=== PATIENT | male | born 1940 | race Caucasian/White ===

== ENCOUNTER 2016-10-28 11:48 | Outpatient (CLI) | payer MEDICARE, OTHER ==
[2015-05-15 09:18] VITALS: BP 117/71
--- NOTE | 2016-10-28 13:41 | Diagnostic Imaging Report ---
[facility] [address] [facility].[address] [address] Report Submission Date: Oct 28, 2016 1:12:26 PM FUELS SALES REPRESENTATIVE Patient Study Name: GALEN PALAFOX Date: Oct 28, 2016 11:57:24 AM FUELS SALES REPRESENTATIVE Modality Type: CR Gender: M Description: PELVIS : 42 Institution: [facility] Physician TYREE PARK - OP Right hip -two views CLINICAL HISTORY: Right hip pain. FINDINGS: Examination right hip in AP and frog-leg lateral views demonstrates degenerative changes with narrowing of the hip joint space and osteophyte formation. There is no fracture and no lytic or blastic lesion. IMPRESSION: Degenerative changes. No fracture. Electronically signed on Oct 28, 2016 1:12:26 PM FUELS SALES REPRESENTATIVE by: Maikel LOTT
== END 2016-10-28 11:50 ==
LOC: RAD 11:48
PROVIDERS: ATTEND Family Medicine
DX: M16.11 Unilateral primary osteoarthritis, right hip (principal)
CPT/HCPCS: 73502

== ENCOUNTER 2016-11-10 07:41 | Outpatient (CLI) | payer MEDICARE, OTHER ==
[2015-05-15 09:18] VITALS: BP 117/71
--- NOTE | 2016-11-10 09:50 | Diagnostic Imaging Report ---
TYREE PARK~ [facility] [address] [address] ~ ~ ~ ~ Report Submission Date: Nov 10, 2016 9:01:51 AM DISTRICT REPRESENTATIVE Patient ~ Study Name: GALEN PALAFOX ~ Date: Nov 10, 2016 7:59:20 AM DISTRICT REPRESENTATIVE ~ Modality Type: MR Gender: M ~ Description: MRI BRAIN W/O CONTRAST : 42 ~ Institution: [facility] Physician: TYREE PARK ~ ~ ~ ~ Magnetic resonance imaging of the brain without contrast History: Left upper and lower extremity paresthesias for 3 weeks. Findings: Multiplanar magnetic resonance imaging of the brain is performed without contrast. Bilateral maxillary sinus mucosal thickening and left maxillary sinus fluid are observed. Mild age appropriate brain atrophy is observed. Mild bilateral frontal and parietal white matter T2 hyperintensity is periventricular through subcortical. Abreu white differentiation is intact. There is no intracranial hemorrhage, mass effect, restricted diffusion, or fluid collection. The brainstem and cerebellum exhibit normal signal. Mastoid air cells exhibit normal signal voids. Impression: 1. Age appropriate brain atrophy and chronic small vessel ischemic gliosis in bilateral frontal and parietal white matter without acute intracranial abnormality. 2. Bilateral maxillary sinusitis. ~ Electronically signed on Nov 10, 2016 9:01:51 AM HEIDI by: Prabhjot LOTT
== END 2016-11-10 07:46 | disposition home or self-care (01) ==
LOC: RAD 07:41
PROVIDERS: ATTEND Family Medicine
DX: R20.2 Paresthesia of skin (principal)
CPT/HCPCS: 70551

== ENCOUNTER 2016-12-28 07:34 | Emergency (ER) | payer MEDICARE, OTHER ==
[2016-12-28 07:59] VITALS: BP 134/81
--- NOTE | 2016-12-28 08:02 | ED Physician Documentation ---
General Adult - HISTORIAN Historian: patient - HPI Stated Complaint: sore throat, sinus drainage Chief Complaint: General Adult Additional Information: Sore throat, sinus congestion/frontal SHETH since yesterday. No fever. - ROS CONST: no problems EYES/ENT: nasal drainage (sinus) GI/: denies: nausea - PAST HX Past History: none Allergies/Adverse Reactions: Allergies Allergy/AdvReac Type Severity Reaction Status Date / Time No Known Drug Allergies Allergy Verified 12/28/16 07:53 Home Medications: Ambulatory Orders Medication Instructions Recorded Aspirin [Aspir 81] 81 mg PO DAILY u2 10/04/13 Azithromycin [Zithromax] 250 mg PO DAILY #6 tablet 12/28/16 - SOCIAL HX Smoking History: non-smoker - FAMILY HX Family History: No (no signif) - VITAL SIGNS Vital Signs: Vital Signs Temp Pulse Resp BP Pulse Ox 98.9 F 70 18 134/81 98 12/28/16 07:55 12/28/16 07:55 12/28/16 07:55 12/28/16 07:55 12/28/16 07:55 - REVIEWED ASSESSMENTS Nursing Assessment Reviewed: Yes Vitals Reviewed: Yes Progress - Progress Progress: Rapid strep positive General Adult Physical Exam - PHYSICAL EXAM GENERAL APPEARANCE: no distress EENT: eye inspection normal, TM's nml, pharyngeal erythema, other (bilateral hearing aids) NECK: normal inspection RESPIRATORY: no resp distress, breath sounds normal CVS: reg rate & rhythm, heart sounds normal RECTAL: deferred BACK: other (fluid movements w/o pain) SKIN: warm/dry, normal color EXTREMITIES: normal range of motion (gait), no evidence of injury NEURO: CN's nml as tested, motor nml, sensation nml, cognition normal Discharge Clincal Impression: Strep sore throat Prescriptions: Azithromycin [Zithromax] 250 mg PO DAILY #6 tablet Home Medications: Ambulatory Orders Aspirin [Aspir 81] 81 mg PO DAILY u2 10/04/13 Azithromycin [Zithromax] 250 mg PO DAILY #6 tablet 12/28/16 Condition: Good Disposition: HOME, SELF-CARE Decision to Admit: NO Decision Time: 08:00
== END 2016-12-28 08:03 | disposition home or self-care (01) ==
LOC: ED 07:34
DX: J02.0 Streptococcal pharyngitis (principal)
CPT/HCPCS: 87880; 99283

== ENCOUNTER 2017-01-10 08:47 | Outpatient (CLI) | payer MEDICARE, OTHER ==
--- NOTE | 2017-01-10 09:44 | Diagnostic Imaging Report ---
[facility] [address] [facility] [address] [address] Report Submission Date: Jan 10, 2017 9:30:04 AM CDT Patient Study Name: GALEN PALAFOX Date: Jan 10, 2017 9:07:27 AM CDT Modality Type: CT\SR Gender: M Description: CT MAXILLOFACIAL W/O D : 42 Institution: [facility] Physician KATTY DENNY - BERENICE CT of the paranasal sinuses CLINICAL HISTORY: Chronic congestion for about 3 months. TECHNIQUE: CT of paranasal sinuses is performed in contiguous axial slices with sagittal and coronal reconstructions. FINDINGS: There is artifact from the patient's metallic dental work. Mucosal thickening is present in the maxillary, sphenoid and frontal sinuses. There is no air- fluid level or bony destruction. The nasal airway passages are patent. The nasal septum is in a midline position. Ostiomeatal complex is within normal limits. There is a small tammi bullosa in the left middle turbinate. IMPRESSION: Chronic paranasal sinus changes. Small tammi bullosa in the left middle turbinate. Electronically signed on Jan 10, 2017 9:30:04 AM CDT by: Maikel LOTT
== END 2017-01-10 08:50 ==
LOC: RAD 08:47
PROVIDERS: ATTEND Family Medicine
DX: J32.1 Chronic frontal sinusitis (principal)
CPT/HCPCS: 70486

== ENCOUNTER 2017-01-29 14:56 | Outpatient (CLI) | payer MEDICARE, OTHER ==
--- NOTE | 2017-01-30 11:11 | OP Clinic Progress Note ---
REFERRING PHYSICIAN: Dr. Rosio Arthur REASON FOR VISIT: Mr. Edwards was born on [birth year], with a history of more of a chronic rhinitis. He does not particularly have headaches. Mostly, his nose runs like a facet. In late September or in October, he had an upper respiratory tract infection and took some medicine with some improvement but it has never really gotten better. Mostly, he notices some facial pressure but does not have headaches. It is mostly a nasal drainage issue. He breathes fairly well. By history, he had some left-sided Eustachian tube dysfunction. That has also moderately improved but not totally gone away. The ear canals are not obstructed with cerumen. They have very mild flaking of the ear canal skin. The left eardrum is still somewhat retracted but it does not have fluid. There is not obvious fluid behind the eardrum. The nose has some diffuse rhinitis. I can see well back into the middle turbinates. There is very light scabbing on those. There are no polyps. There is no gross pus. There is some generalized increased inflammation. The nasal septum is straight and there is septal perforation. The turbinates are fairly normal in size. Review of the CT of his sinuses has some generalized thickening in the maxillary , sphenoid, and frontal sinuses, but it is not severe. PLAN: Overall, he has had more symptoms of a chronic rhinitis that has not resolved over the last about 2-1/2 months. Before this, he was not really having symptoms of obvious allergic rhinitis. Again, this seemed to have come on more with an infection. For this reason as opposed to just having skin testing for allergies, I have recommended a trial on antibiotics. I picked azithromycin (Z- Charles) with 2 renewals to be taken about 4 or 5 days apart. Also, use some plain saline nasal spray and I discussed with him how to put a small amount of peroxide in the saline spray bottles for some increased cleaning of both nostrils and continue to do that 4 to 6 times a day on an ongoing basis. I am not giving him a specific appointment to come back. If he gets enough symptomatic improvement, that is fine. If not, I encouraged him to give us a call and I would be happy to see him and review these issues again with him. cc: Dr. Rosio LOTT
== END 2017-01-29 14:57 ==
LOC: ENT 14:56
PROVIDERS: ATTEND Otolaryngology
DX: J30.9 Allergic rhinitis, unspecified (principal)
CPT/HCPCS: G0463

== ENCOUNTER 2017-05-07 07:32 | Outpatient (CLI) | payer MEDICARE, OTHER ==
[2017-05-07 08:35] LABS: BASOPHILS % 0.7 (0.0-1.5); EOSINOPHILS % 2.2 % (0.0-6.8); MEAN CORPUSCULAR HEMOGLOBIN 32.2 pg (28.0-34.0); MEAN CORPUSCULAR VOLUME 94.5 fl (80.0-100.0); MONOCYTES % 8.9 % (0.0-11.0); NEUTROPHILS # 3.7 # k/uL (1.4-7.7)
[2017-05-07 08:49] LABS: eGFR (African) > 60; eGFR (Non-African) > 60
== END 2017-05-07 07:33 ==
LOC: LAB 07:32
PROVIDERS: ATTEND Family Medicine
DX: E78.00 Pure hypercholesterolemia, unspecified (principal); I10 Essential (primary) hypertension; N40.0 Benign prostatic hyperplasia without lower urinary tract symptoms
CPT/HCPCS: 36415; 80053; 80061; 84153; 85025

== ENCOUNTER 2017-07-23 10:27 | Outpatient (CLI) | payer MEDICARE, OTHER ==
--- NOTE | 2017-07-23 15:19 | Diagnostic Imaging Report ---
TYREE PARK [facility] [address] [facility].[address] [address] Report Submission Date: Jul 23, 2017 11:21:44 AM CDT Patient Study Name: GALEN PALAFOX Date: Jul 23, 2017 10:57:11 AM CDT Modality Type: CR Gender: M Description: CHEST : 42 Institution: [facility] Physician: TYREE PARK Examination: PA and lateral chest. History: Evaluate lung long. Comparison exam: None available Findings: PA lateral chest demonstrate a normal cardiac silhouette. Mild tortuosity of the thoracic aorta. No focal infiltrate. No blunting of the costophrenic margins. Osseous structures are appropriate for age. Impression: No acute pulmonary process. Electronically signed on Jul 23, 2017 11:21:44 AM CDT by: Joey LOTT
== END 2017-07-23 10:30 ==
LOC: RT 10:27
PROVIDERS: ATTEND Family Medicine
DX: R06.09 Other forms of dyspnea (principal)
CPT/HCPCS: 71020

== ENCOUNTER 2018-01-28 03:49 | Emergency (ER) | payer MEDICARE, OTHER ==
[2018-01-28 04:05] VITALS: BP 147/86
--- NOTE | 2018-01-28 04:10 | ED Physician Documentation ---
Sore Throat/Dental Pain - HISTORIAN Historian: patient - HPI Stated Complaint: Sore throat Chief Complaint: Sore Throat Onset: hours (5) Context: Other (he states it feels like thrush as before ) Associated Symptoms: sore throat, moderate. denies: fever, chills, unable to swallow, runny nose, swollen glands Worsened By: nothing Further Comments: yes (He states he was treated for thrush in the past and this is what the sore throat feels like.) - ROS CONST: no problems CVS/RESP: none GI/: denies: nausea, vomiting MS/SKIN/LYMPH: denies: rash NEURO/PSYCH: denies: headache - PAST HX Past History: none Other History: none Immunizations: UTD Allergies/Adverse Reactions: Allergies Allergy/AdvReac Type Severity Reaction Status Date / Time No Known Drug Allergies Allergy Verified 01/28/18 04:06 Home Medications: Ambulatory Orders Medication Instructions Recorded Aspirin [Aspir 81] 81 mg PO DAILY u2 10/04/13 - SOCIAL HX Smoking History: non-smoker Alcohol Use: none Drug Use: none - FAMILY HX Family History: No - VITAL SIGNS Vital Signs: Vital Signs Temp Pulse Resp BP Pulse Ox 98.4 F 77 18 147/86 95 01/28/18 04:25 01/28/18 04:25 01/28/18 04:25 01/28/18 04:25 01/28/18 04:25 - REVIEWED ASSESSMENTS Nursing Assessment Reviewed: Yes Vitals Reviewed: Yes Sore throat Physical Exam - EXAM General Appearance: no acute distress, alert Head/Neck: head nml inspection. No: cervical lymphadenopathy Eyes: eyes nml inspection Mouth/Throat: lips nml, no air way problems, pharyngeal erythema, other ( candidia thrush patches ) Ear/Nose: No: TM erythema, loss of TM landmarks Respiratory: no resp. distress, breath sounds nml, respiratory distress CVS: reg. rate & rhythm, heart sounds nml Abdomen: soft, normal bowel sounds Extremities: non-tender Skin: warm/dry, normal color Neuro/Psych: oriented x3, mood/affect nml Discharge Clincal Impression: Leelee infection of mouth Referrals: Deangelo Dang MD [Primary Care Provider] - 2 Days Comments: 1. Nystatin 100,000 units/ml take 4 ml swish and swallow four times per day 2. warm tea with honey for soothing 3. tylenol or ibuprofen for pain 4. Follow up with PCP in 2-4 days if no improvement 5. Return to ER for further concerns Condition: Stable Disposition: 01 HOME, SELF-CARE Decision to Admit: NO Date of Decison to Admit: 01/28/18 Decision Time: 04:19
== END 2018-01-28 04:25 | disposition home or self-care (01) ==
LOC: ED 03:49
DX: B37.9 Candidiasis, unspecified (principal)
CPT/HCPCS: 87070; 87880; 99283

== ENCOUNTER 2018-07-31 16:30 | Outpatient (CLI) | payer MEDICARE, OTHER | END 2018-07-31 16:32 | LOC: LABRHC 16:30 | PROVIDERS: ATTEND Family Medicine | DX: R30.0 Dysuria (principal) | CPT/HCPCS: 87086 ==

== ENCOUNTER 2019-04-13 07:43 | Outpatient (CLI) | payer MEDICARE, OTHER ==
[2019-04-13 08:15] LABS: BASOPHILS % 0.4 % (0.0-1.5); NEUTROPHILS # 3.9 # k/uL (1.4-7.7)
--- NOTE | 2019-04-13 08:27 | Diagnostic Imaging Report ---
TYREE PARK [facility] [address] [facility] [address] [address] Report Submission Date: Apr 13, 2019 8:13:45 AM CDT Patient Study Name: GALEN PALAFOX Date: Apr 13, 2019 7:49:52 AM CDT Modality Type: DX Gender: M Description: L SPINE 2 OR 3 VIEWS : 42 Institution: [facility] Physician: TYREE PARK Exam: Lumbar spine. History: Left-sided back pain. AP, lateral and L5-S1 spot view of the lumbar spine are submitted. Diffuse osteopenia is noted. Old compression deformity to the superior endplate of L2 is noted. Endplate sclerosis and spurring in the upper lumbar spine is noted. No spondylolisthesis is identified. Impression: Diffuse osteopenia. No acute fracture. Degenerative disc disease upper lumbar spine. Electronically signed on Apr 13, 2019 8:13:45 AM CDT by: Reza LOTT
[2019-04-13 08:35] LABS: HDL 45 mg/dL (>40); eGFR (Non-African) > 60
== END 2019-04-13 07:45 ==
LOC: LAB 07:43
PROVIDERS: ATTEND Family Medicine
DX: I10 Essential (primary) hypertension (principal); E78.1 Pure hyperglyceridemia; N40.0 Benign prostatic hyperplasia without lower urinary tract symptoms; M54.40 Lumbago with sciatica, unspecified side
CPT/HCPCS: 36415; 72100; 80053; 80061; 84153; 85025

== ENCOUNTER 2019-05-27 13:21 | Outpatient (CLI) | payer MEDICARE, OTHER ==
--- NOTE | 2019-05-28 14:08 | Diagnostic Imaging Report ---
FERDINAND VENTURA [facility] [address] [address] Report Submission Date: May 27, 2019 2:51:19 PM CDT Patient Study Name: GALEN PALAFOX Date: May 27, 2019 2:11:47 PM CDT Modality Type: DX Gender: M Description: C SPINE 4 VIEWS OR MORE : 42 Institution: [facility] Physician: FERDINAND VENTURA Examination: Cervical spine History: CERVICALGIA Comparison exams: None available Findings: 6 views of the cervical spine demonstrate normal height and alignment. No anterior compression. No abnormal listhesis. Numerous scattered osteophytes associated disc space narrowing. Oblique views demonstrate neuroforaminal narrowing. Normal flexion extension imaging. No odontoid abnormality. No prevertebral abnormality. Impression: Multilevel degenerative changes. No acute appearing osseous abnormality Electronically signed on May 27, 2019 2:51:19 PM CDT by: Joey LOTT
--- NOTE | 2019-06-02 16:15 | CONSULTATION REPORT ---
CHIEF COMPLAINT: Neck pain. HISTORY OF PRESENT ILLNESS: Tae is a 79-year-old male patient here today for evaluation for neck pain. The patient tells me that he has had approximately a six months history of worsening neck pain. He describes his neck pain as a constant dull ache. He denies any pain radiation, numbness. tingling, upper extremity weakness or headaches associated with his neck pain. The pain is exacerbated with activity. It is improved with rest, Tylenol and heat. The patient has tried physical therapy, the last being in approximately January, which did help some, but his pain has recurred. The patient has admittedly not followed a home exercise program for his neck pain. He has never had primary care physician or acupuncture or any sort of invasive interventions. Mainly the patient takes Tylenol, however, he does have tramadol to take if his pain is severe, however, he rarely uses this. PAST MEDICAL HISTORY: Includes hypertension, hyperlipidemia, BPH, seasonal allergies, sleep apnea (does not use machine), peptic ulcer disease, intestinal bacterial overgrowth. PAST SURGICAL HISTORY: Includes cholecystectomy in 1985 and nasal septum surgery in 1996. SOCIAL HISTORY: The patient is a past smoker and has not smoked since 1971. At that time, he was a one half pack per day smoker for approximately 12 years. ETOH, current drinks two drinks per day for approximately 50 years. Recreational drug use, he denies. Occupation is retired. Marital status . FAMILY HISTORY: Mother had cancer. Father had cancer and maternal grandmother had cancer, maternal grandfather had a heart attack. CURRENT MEDICATIONS: The patient is on tramadol 50 mg one p.o. t.i.d. p.r.n. pain, Singulair 10 mg one p.o. daily, atorvastatin 10 mg one p.o. daily, Flomax 0.4 mg one p.o. daily, pantoprazole 40 mg one p.o. daily, Zyrtec 10 mg one p.o. daily, Flonase 50 mcg spray, one spray per nostril daily. The patient also takes a probiotic that is [id number], one p.o. q.day as well as vitamin D [id number] one tab p.o. q.day. DRUG ALLERGIES: The patient denies. REVIEW OF SYSTEMS: Please see the complete review of systems that is scanned into the system. Pertinent to today's visit: Musculoskeletal is positive for neck pain and neck stiffness. OBJECTIVE: General: This is an elderly male patient presenting in no acute distress. Vital Signs: He is 5 feet 11 inches tall, weighs 189 pounds. Pulse is 72, respiratory rate 18, blood pressure 152/76 with an SaO2 of 94% on room air. Psych: He is alert and oriented x3. He is calm, pleasant and cooperative. HEENT: He is normocephalic and atraumatic. Sclerae is clear. Pupils are equal and round without miosis. Trachea is midline. A small mobile slightly tender lymph node is palpable in the left postauricular area. No other lymphadenopathy. CV: Normal S1, S2. Regular rate and rhythm, no murmurs, rubs or gallops. No upper or lower extremity swelling. Pulmonary: Nonlabored respirations at rest. Clear to auscultation bilaterally throughout. Musculoskeletal: On inspection of the neck, there is no gross deformities. The patient has just very slight tenderness to palpation over the C2-C3, C3-C4 facets as well as over the cervical paraspinals. He is able to achieve full range of motion in his cervical spine. Upper extremity strength is equal and strong in all areas graded 5/5. The patient does have mild axial pain with facet loading. Deep tendon reflexes are 2+ in bilateral upper extremities and sensation is intact bilateral upper extremities. Neurologic: Cranial nerves II through XII are grossly intact today. The patient walks with a steady gait. IMPRESSION: 1. Cervicalgia. PLAN: 1. The patient is going to resume his cervical home exercise program at least two times per day over the next couple of weeks. 2. I have ordered cervical spine x-ray series to include extension, flexion and odontoid views. 3. I am going to have him followup on June 08 the next time I am here at the clinic. At that time, we are going to go over the patient's x-ray and current symptoms and determine an interventional plan if his pain is still present. He is to continue his current conservative measures of taking Tylenol, resting and using heat to the area when the pain is at its worse. The patient does verbalize understanding and agrees to the current treatment plan. Salma Owusu NP Nurse Practitioner (Dictated/not signed) /[employer] [id number] JOB# [id number] jrd cc: Deangelo Dang MD MTDD
== END 2019-05-27 13:50 ==
LOC: OUT 13:21
PROVIDERS: ATTEND Nurse Practitioner Adult Health
DX: M54.2 Cervicalgia (principal)
CPT/HCPCS: 72050; 99202; G0463

== ENCOUNTER 2019-06-08 13:56 | Outpatient (CLI) | payer MEDICARE, OTHER ==
--- NOTE | 2019-06-11 10:59 | OP Clinic Progress Note ---
DATE OF SERVICE: 06/08/2019 CHIEF COMPLAINT: Neck pain. HISTORY OF PRESENT ILLNESS: Tae is a 79-year-old male patient here for follow-up today for neck pain. The patient has had an approximately 6 month history of worsening neck pain. He describes this as a constant ache. He denies any pain radiation, numbness, tingling, upper extremity weakness or headaches associated with his neck pain. His neck pain is exacerbated with activity. It is improved with rest, Tylenol and heat. I did give the patient a home exercise program to do over the last several weeks that he has completed with some improvement in his neck pain. He continues to have persistent left postauricular neck pain as well as superior trapezius pain. PHYSICAL EXAMINATION: General: This is a well developed, well nourished elderly male patient presenting in no acute distress. Vital Signs: The patient is 511, weighs 188 lbs. Temperature is 97.4, pulse is 74, respiratory rate is 18. Blood pressure is 126/72 with an SAO2 of 94% on room air. Psych: He is alert and oriented x3. He is calm, pleasant and cooperative. HEENT: He is normocephalic and atraumatic. Pupils are equal and round, without miosis. Sclerae are clear. Trachea is midline. Musculoskeletal: The patient does have paracervical trigger points, especially in the upper paracervicals. He also has bilateral superior trapezius trigger points and tenderness to palpation. Neurologic: Cranial nerves 2-12 are grossly intact. The patient walks with a steady gait. IMPRESSION: 1. Cervicalgia. 2. Cervical degenerative disc disease. 3. Paracervical muscle trigger points and superior trapezius trigger points bilaterally. PLAN: 1. I have ordered trigger point injections in paracervicals bilaterally as well as superior trapezius bilaterally with Dr. Irby. 2. The patient is to follow up in 1 month or sooner if needed. The patient did verbalize understanding and agreed to the current treatment plan. Thank you for your kind referral. Sincerely, Salma Owusu NP Nurse Practitioner (Dictated but not read) Shasha JOB#: [id number] cc: Dr. Alton LOTT
== END 2019-06-08 14:56 ==
LOC: OUT 13:56
PROVIDERS: ATTEND Nurse Practitioner Adult Health
DX: M50.30 Other cervical disc degeneration, unspecified cervical region (principal)
CPT/HCPCS: 99213; G0463